=== PATIENT | female | born 1985 | race Caucasian/White ===

== ENCOUNTER 2016-12-04 16:19 | Inpatient (IN) | payer OTHER ==
[~2016-12-04] VITALS: Ht 172.8 cm; Wt 94.1 kg
[2017-01-01] VITALS (17 sets, daily range): BP systolic 107–136; BP diastolic 53–79; PULSE 67–95; TEMP 97.6–98
[2017-01-01 09:33] LABS: BASO % 0.4 % (0.0-2.0); EOS # 0.1 (0.0-0.7); EOS % 0.9 % (0-4.0); GRAN # 8.3 (1.4-6.5); GRAN % 73.1 % (42.2-75.2); LYMPH % 17.2 % (20.0-51.0); MEAN CELL VOLUME 87 fl (80.0-100.0); MEAN CORPUSCULAR HGB CONC 34 g/dl (33.0-37.0); MEAN PLATELET VOLUME 10.2 fl (7.4-10.4); MONO # 0.8 (0.1-0.6); MONO % 7.4 % (1.7-9.3); PLATELET COUNT 235 K/mm3 (130-400); RED BLOOD COUNT 3.79 M/mm3 (4.10-5.30); REDCELL DISTRIBUTION WIDTH-CV 13.6 % (11.5-14.5); WHITE BLOOD COUNT 11.4 K/mm3 (4.8-10.8)
[2017-01-01 09:54] LABS: HEMOGLOBIN 11.1 g/dl (12.5-16.0); MEAN CORPUSCULAR HEMOGLOBIN 29 pg (27.0-31.0)
[2017-01-02] VITALS: BP 137/83; PULSE 78; TEMP 97.6
[2017-01-02 07:27] VITALS: BP 119/78; PULSE 79; TEMP 97.8
[2017-01-02 07:53] LABS: HEMATOCRIT 33.3 % (37.0-47.0); HEMOGLOBIN 10.8 g/dl (12.5-16.0)
[2017-01-02 17:00] VITALS: BP 131/78; PULSE 81; TEMP 97.8
[2017-01-02 20:15] VITALS: BP 118/87; PULSE 76; TEMP 97.7
[2017-01-03 07:54] VITALS: BP 133/80; PULSE 75; TEMP 97.4
[2017-01-03 15:56] VITALS: BP 116/78; PULSE 79; TEMP 97.7
[2017-01-03] MEDS ORDERED: PERCOCET 325 MG1 TA2 PO (18:50)
[2017-01-03] MEDS ORDERED: IBU600 MG PO (18:50)
== END 2017-01-03 20:50 | disposition home or self-care (01) | DRG 765 ==
LOC: LDR 01-01 08:14 → OB 01-01 08:54 → EDSTATUS 02-05 08:11 → LDRO 02-05 16:19
PROVIDERS: Obstetrics & Gynecology
PROC: 10D00Z1 Extraction of Products of Conception, Low, Open Approach (ICD-10-PCS; principal; 2017-01-01)
DX: O34.212 Maternal care for vertical scar from previous cesarean delivery (principal); O36.0130 Maternal care for anti-D [Rh] antibodies, third trimester, not applicable or unspecified; N85.8 Other specified noninflammatory disorders of uterus; O99.89 Other specified diseases and conditions complicating pregnancy, childbirth and the puerperium; N73.6 Female pelvic peritoneal adhesions (postinfective); Z3A.37 37 weeks gestation of pregnancy; Z37.0 Single live birth
CPT/HCPCS: J0690; J1885; J2270; J2370; J2405; J2590; J7120